=== PATIENT | female | born 1940 | race Hispanic/Latino ===

== ENCOUNTER → 2018-07-08 | Outpatient (CLI) | payer MEDICARE | END | disposition home or self-care (01) | LOC: LAB 11:52 | PROVIDERS: ATTEND Otolaryngology Plastic Surgery within the Head & Neck | DX: H90.3 Sensorineural hearing loss, bilateral (principal) | CPT/HCPCS: 36415; 82565; 84520 ==

== ENCOUNTER 2019-10-20 10:01 | Emergency (ER) | payer MEDICARE ==
[2019-10-20 11:11] LABS: BASOPHILS % (AUTO) 0.4 % (0.0-5.0); EOSINOPHILS % (AUTO) 2.4 % (0.0-8.0); LYMPHOCYTES % (AUTO) 18.7 % (21.0-51.0); MEAN CORPUSCULAR HEMOGLOBIN 32.5 pg (27.0-33.0); MEAN CORPUSCULAR VOLUME 98.7 fL (79-99); NEUTROPHILS % (AUTO) 72.1 % (40.0-77.0); PLATELET COUNT (AUTO) 150 K/uL (130-400); RED BLOOD CELL COUNT(AUTO) 3.75 MIL/uL (4.00-5.50)
[2019-10-20 11:17] LABS: POTASSIUM 4.5 mmol/L (3.5-5.1)
[2019-10-20 11:21] LABS: ALBUMIN 3.9 g/dL (3.5-5.0); TOTAL PROTEIN, SERUM 7.2 g/dL (6.0-8.3)
[2019-10-20 11:39] LABS: APPEARANCE,URINE Clear (CLEAR); BILIRUBIN,URINE Negative (NEGATIVE); COLOR,URINE Yellow (YELLOW); GLUCOSE, URINE (UA) Negative (NEGATIVE); KETONES,URINE Negative (NEGATIVE); LEUKOCYTE ESTERASE ,URINE Negative (NEGATIVE); NITRATE,URINE Negative (NEGATIVE); OCCULT BLOOD,URINE Negative (NEGATIVE); PH,URINE 7.5 (5.0-8.0); PROTEIN,URINE Negative (NEGATIVE)
[2019-10-20] MEDS ORDERED: SODIUM CHLORIDE 0.9% 1000ML 1,000 ML IV ONE (12:50)
== END 2019-10-20 14:06 | disposition home or self-care (01) ==
LOC: EDH 10:01
DX: K44.9 Diaphragmatic hernia without obstruction or gangrene (principal); E78.00 Pure hypercholesterolemia, unspecified; I10 Essential (primary) hypertension; Z90.49 Acquired absence of other specified parts of digestive tract; Z88.6 Allergy status to analgesic agent
CPT/HCPCS: 36415; 74176; 80053; 81003; 82150; 83690; 85025; 93005; J7030

== ENCOUNTER 2019-10-25 12:40 | Emergency (ER) | payer MEDICARE ==
[2019-10-25] MEDS ORDERED: ONDANSETRON HCL 4 MG/2 ML VIAL ONE (13:02)
[2019-10-25] MEDS ORDERED: MORPHINE SULFATE 4 MG/1ML SYG ONE (13:02)
[2019-10-25 13:08] LABS: BASOPHILS % (AUTO) 0.5 % (0.0-5.0); EOSINOPHILS % (AUTO) 2.4 % (0.0-8.0); HEMATOCRIT 34.7 % (36-48); LYMPHOCYTES % (AUTO) 23.6 % (21.0-51.0); MEAN CORPUSCULAR HGB CONC 33.4 g/dL (32.0-36.0); MEAN CORPUSCULAR VOLUME 98.6 fL (79-99); MONOCYTES % (AUTO) 6.3 % (3.0-13.0); NEUTROPHILS % (AUTO) 66.9 % (40.0-77.0); PLATELET COUNT (AUTO) 180 K/uL (130-400); RED BLOOD CELL COUNT(AUTO) 3.52 MIL/uL (4.00-5.50); RED CELL DISTRIBUTION WIDTH 12.3 % (11.0-15.5); WHITE BLOOD COUNT (AUTO) 6.2 K/uL (4.8-10.8)
[2019-10-25 13:24] LABS: CREATININE 1.1 mg/dL (0.5-1.5)
[2019-10-25 13:28] LABS: ALBUMIN 3.9 g/dL (3.5-5.0); BILIRUBIN,TOTAL 0.7 mg/dL (0.2-1.0); TOTAL PROTEIN, SERUM 7.3 g/dL (6.0-8.3)
[2019-10-25 13:41] LABS: INR 0.95 (0.85-1.15); PARTIAL THROMBOPLASTIN TIME 22.6 SEC (26.3-35.5); PROTHROMBIN TIME 10.3 SEC (9.6-11.6)
[2019-10-25] MEDS ORDERED: MAG HYDROX/AL HYDROX/SIMETH ES 30 ML SUSP UDCUP ONE (16:02)
[2019-10-25] MEDS ORDERED: LIDOCAINE HCL 2% VISCOUS 15 ML UDCUP ONE (16:02)
[2019-10-25] MEDS ORDERED: DICYCLOMINE HCL 10 MG/ML 2ML AMP IM ONE (16:05)
[2019-10-25] MEDS ORDERED: SODIUM CHLORIDE 0.9% 500ML 500 ML IV ONE (16:40)
== END 2019-10-25 18:02 | disposition home or self-care (01) ==
LOC: EDH 12:40
DX: K44.9 Diaphragmatic hernia without obstruction or gangrene (principal); R10.13 Epigastric pain; E78.00 Pure hypercholesterolemia, unspecified; I10 Essential (primary) hypertension; Z90.49 Acquired absence of other specified parts of digestive tract; Z88.6 Allergy status to analgesic agent
CPT/HCPCS: 36415; 71045; 74176; 80053; 82550; 83690; 84484; 85025; 85610; 85730; 93005; 96372; 96374; 96375; 99285; J0500; J2270; J2405; J7040; 74240

== ENCOUNTER → 2019-10-25 | Outpatient (CLI) | payer MEDICARE ==
[~2019-10-25] MED LIST: LINA145C PO; LISI10TA7 PO; PANT40TA25 PO; SUCR1TAB2 PO
== END | disposition home or self-care (01) ==
LOC: RAH 10:09
PROVIDERS: ATTEND Internal Medicine Gastroenterology
DX: K44.9 Diaphragmatic hernia without obstruction or gangrene (principal); K21.9 Gastro-esophageal reflux disease without esophagitis
CPT/HCPCS: 74240

== ENCOUNTER 2019-10-27 23:57 | Inpatient (IN) | payer MEDICARE ==
[~2019-10-27] VITALS: Ht 162.6 cm; Wt 78.0 kg
[2019-10-28] VITALS (35 sets, daily range): BP systolic 52–164; BP diastolic 26–90
[2019-10-28 00:14] LABS: BASOPHILS % (AUTO) 0.7 % (0.0-5.0); EOSINOPHILS % (AUTO) 0.2 % (0.0-8.0); HEMATOCRIT 42.7 % (36-48); LYMPHOCYTES % (AUTO) 4.7 % (21.0-51.0); MEAN CORPUSCULAR HEMOGLOBIN 32.9 pg (27.0-33.0); MEAN CORPUSCULAR HGB CONC 33.5 g/dL (32.0-36.0); MEAN CORPUSCULAR VOLUME 98.4 fL (79-99); MONOCYTES % (AUTO) 7.3 % (3.0-13.0); NEUTROPHILS % (AUTO) 86.5 % (40.0-77.0); PLATELET COUNT (AUTO) 206 K/uL (130-400); RED BLOOD CELL COUNT(AUTO) 4.34 MIL/uL (4.00-5.50); WHITE BLOOD COUNT (AUTO) 8.8 K/uL (4.8-10.8)
[2019-10-28] MEDS ORDERED: SODIUM CHLORIDE 0.9% 500ML 500 ML IV ONE ×2 (00:16→01:10)
[2019-10-28 00:30] LABS: PROTHROMBIN TIME 10.8 SEC (9.6-11.6)
[2019-10-28 00:38] LABS: BILIRUBIN,TOTAL 1.9 mg/dL (0.2-1.0); CREATININE 2.5 mg/dL (0.5-1.5); POTASSIUM 3.9 mmol/L (3.5-5.1); TOTAL PROTEIN, SERUM 7.8 g/dL (6.0-8.3)
[2019-10-28] MEDS ORDERED: ONDANSETRON HCL 4 MG/2 ML VIAL ONE (01:10)
[2019-10-28] MEDS ORDERED: SODIUM CHLORIDE 0.9% 1000ML 1,000 ML IV SCH (02:11)
[2019-10-28] MEDS ORDERED: MORPHINE SULFATE 2 MG/ML 1ML SYG IV PRN (02:15)
[2019-10-28] MEDS ORDERED: ACETAMINOPHEN 325 MG TAB PO PRN ×2 (02:15)
[2019-10-28] MEDS ORDERED: LACTULOSE 20 GM/30 ML UDCUP PO PRN (02:15)
[2019-10-28] MEDS ORDERED: HYDRALAZINE HCL 20 MG/ML VIAL IV PRN (02:15)
[2019-10-28] MEDS ORDERED: ONDANSETRON HCL 4 MG/2 ML VIAL IV PRN (02:15)
[2019-10-28] MEDS ORDERED: NITROGLYCERIN 0.4 MG SL TAB SL PRN (03:15)
[2019-10-28 04:05] LABS: CHOLESTEROL 201 mg/dL (<200); HDL CHOLESTEROL 128 mg/dL (35-85); LDL DIRECT 102 mg/dL (0-99); TRIGLYCERIDES 116 mg/dL (30-200)
--- NOTE | 2019-10-28 04:30 | NUR ---
ADMISSION PT TRANSFERRED FROM ER VIA STRETCHER INTO ROOM 419. PT AWAKE, ALERT AND VERBALLY RESPONSIVE. NO C/O PAIN OR DISCOMFORT AT THIS TIME. PT AND FAMILY MEMBER AT BEDSIDE ORIENTED TO ROOM, CALL MELENDREZ WITHIN REACH, BED IN LOWEST POSITION. Addendum: 10/28/19 at 0432 by SHAAN PERALTA RN Amended: Links added.
--- NOTE | 2019-10-28 04:38 | NUR ---
UPON ASSESSING VITALS ON THE FLOOR BP 83/42 O2 SAT 86% ON OXYGEN VIA NC AT 2L/MIN. PT NOW C/O ABD PAIN 05/20, ASSOCIATE PROFESSOR OF EDUCATION ANGELINE MADE AWARE OF PT BP AND PAIN LEVEL. NEW ORDERS GIVEN AND CARRIED OUT.
[2019-10-28] MEDS ORDERED: LINA145C PO (04:40)
[2019-10-28] MEDS ORDERED: PANT40TA25 PO (04:40)
[2019-10-28] MEDS ORDERED: SUCR1TAB2 PO (04:40)
[2019-10-28] MEDS ORDERED: LISI10TA7 PO (04:40)
[2019-10-28] MEDS ORDERED: DILTIAZEM HCL 5 MG/ML 5 ML VIAL IVP SCH (05:15)
--- NOTE | 2019-10-28 05:15 | NUR ---
PROFESSOR OF OCEANOGRAPHY MADE THIS NURSE AWARE THAT PT CONVERTED TO AFIB HR 150-170'S, B/P 68/36, O2 SAT 81% ON 2L/MIN. JOSELYN MARCUS IN PT ROOM ASSESSING PT. NEW ORDERS GIVEN AND CARRIED OUT.
--- NOTE | 2019-10-28 05:25 | NUR ---
SPOKE TO MD SANFORD FOR CRITICAL CARE, STATED HE IS NOT DUMPER TONIGHT. PAGED ANSWERING SERVICE FOR DR. FELIZ TO [phone]. AWAITING CALL BACK.
--- NOTE | 2019-10-28 05:37 | NUR ---
PT CONVERTED BACK TO NSR HR IN THE 90'S, JOSELYN MARCUS MADE AWARE.
--- NOTE | 2019-10-28 05:39 | NUR ---
SPOKE TO DR. EDGAR IN REGARDS TO NEW CONSULT FOR CT ABD/PELVIS RESULTS OF SBO. STATED WILL SEE PT TODAY WHEN HE ROUNDS.
--- NOTE | 2019-10-28 05:40 | NUR ---
ANSWERING SERVICE PAGED ONCE AGAIN FOR DR. FELIZ. AWAITING CALL BACK.
[2019-10-28] MEDS ORDERED: IPRATROPIUM/ALBUTEROL SULFATE 3 ML SOLUTION IH SCH (06:00)
[2019-10-28 06:07] LABS: BASOPHILS % (AUTO) 0.8 % (0.0-5.0); EOSINOPHILS % (AUTO) 3.5 % (0.0-8.0); HEMATOCRIT 40.5 % (36-48); LYMPHOCYTES % (AUTO) 9.3 % (21.0-51.0); MEAN CORPUSCULAR HEMOGLOBIN 32.8 pg (27.0-33.0); MEAN CORPUSCULAR HGB CONC 32.3 g/dL (32.0-36.0); MEAN CORPUSCULAR VOLUME 101.5 fL (79-99); MONOCYTES % (AUTO) 3.5 % (3.0-13.0); NEUTROPHILS % (AUTO) 82.1 % (40.0-77.0); PLATELET COUNT (AUTO) 198 K/uL (130-400); RED BLOOD CELL COUNT(AUTO) 3.99 MIL/uL (4.00-5.50); RED CELL DISTRIBUTION WIDTH 12.1 % (11.0-15.5); WHITE BLOOD COUNT (AUTO) 6.6 K/uL (4.8-10.8)
[2019-10-28] MEDS ORDERED: NOREPINEPHRINE 4MG/NS 250ML 250 ML IV SCH (06:15)
[2019-10-28] MEDS ORDERED: VANCOMYCIN PROTOCOL PER PHARMACY IV SCH ×2 (06:15→08:30)
[2019-10-28] MEDS ORDERED: ZOSYN 3.375GM+NS 50ML 50 ML IV SCH (06:15)
[2019-10-28 06:26] LABS: CREATININE 2.8 mg/dL (0.5-1.5); POTASSIUM 4.2 mmol/L (3.5-5.1)
[2019-10-28] MEDS: IPRATROPIUM 0.5 MG/2.5 ML INH IH SCH ×2 (06:44→10:25)
--- NOTE | 2019-10-28 07:22 | NUR ---
CARDIOLOGY PAGED AT THIS TIME, AWAITING NOLBERTO BACK.
--- NOTE | 2019-10-28 07:30 | NUR ---
SPOKE TO DR. SANFORD, DUE TO UNABLE TO REACH DR. FELIZ AT THIS TIME, UPDATED MD ON PT STATUS. NEW ORDERS RECEIVED.
--- NOTE | 2019-10-28 07:35 | NUR ---
PT SITTING UP IN BED, BECAME UNRESPONSIVE. RAPID RESPONSE CALLED.
--- NOTE | 2019-10-28 07:40 | NUR ---
ON THE PHONE WITH DR. SANFORD CRITICAL CARE, UPDATING MD ON PT STATUS, PT OBSERVED AGONAL BREATHING. DEBRA BEDOLLA CALLED AT THIS TIME, PT WITH NO PULSE.
[2019-10-28] MEDS ORDERED: LACTATED RINGERS 1000ML IV SCH (07:45)
--- NOTE | 2019-10-28 07:56 | NUR ---
SPOKE TO DR. KIM MADE AWARE OF NEW CONSULTATION FOR PT AND PT CURRENT CONDITION, NO NEW ORDERS GIVEN AT THIS TIME.
--- NOTE | 2019-10-28 08:02 | NUR ---
REPORT GIVEN TO NOMI ICU NURSE. PT BEING TRANSFERRED TO ROOM 207 AT THIS TIME.
[2019-10-28] MEDS ORDERED: MEROPENEM 1 GM VIAL IVP SCH (08:15)
[2019-10-28 08:21] LABS: ABG BASE EXCESS -21.3 mmol/L (-2.0-3.0); ABG HCO3 9.2 mmol/L (21.0-28.0); ABG OXYGEN SATURATION 98.3 % (95.0-99.0); ABG PCO2 38 mmHg (32-45)
[2019-10-28] MEDS ORDERED: SODIUM BICARB 50MEQ 50ML VIAL ONE (08:28)
[2019-10-28] MEDS ORDERED: CALCIUM CHLORIDE 100 MG/ML 10 ML SYG IVP SCH (08:30)
[2019-10-28] MEDS ORDERED: LACTATED RINGERS 1000ML 1,000 ML IV SCH (08:30)
[2019-10-28] MEDS ORDERED: SODIUM BICARB 8.4% 50ML SYRING 150 MEQ in DEXTROSE 5%-WATER 1,000 ML IV SCH (08:30)
--- NOTE | 2019-10-28 08:30 | NUR ---
PATIENT RECEIVED INTUBATED AND HYPOTENSIVE PATIENT CURRENTLY UNRESPONSIVE, INTUBATED AND BEING BAGGED BY RT. DR SANFORD AT BEDSIDE TO EXAMINE PATIENT. PREPARING FOR EMERGENCY PLACEMENT OF FEMORAL CENTRAL LINE.
[2019-10-28] MEDS ORDERED: FENTANYL CITRATE PF 50 MCG/1 ML 5ML AMP IV ONE (08:36)
[2019-10-28] MEDS ORDERED: MIDAZOLAM HCL 1 MG/ML 2ML VIAL ONE (08:36)
[2019-10-28] MEDS ORDERED: NOREPINEPHRINE 4MG/NS 250ML 250 ML IV PRN (08:45)
[2019-10-28] MEDS ORDERED: MAGNESIUM 2GM PREMIX 50ML 50 ML IV ONE (08:49)
[2019-10-28] MEDS ORDERED: FAMOTIDINE/PF 20 MG/2 ML VIAL IV SCH (09:00)
[2019-10-28] MEDS ORDERED: ASPIRIN 81MG TAB.CHEW PO SCH (09:00)
[2019-10-28] MEDS ORDERED: FENTANYL CITRATE PF 50 MCG/1 ML 2ML VIAL IVP SCH (09:00)
[2019-10-28] MEDS ORDERED: AMIODARONE HCL 150 MG in DEXTROSE 5%-WATER 100 ML IV SCH (09:00)
[2019-10-28] MEDS ORDERED: MAGNESIUM 2GM PREMIX 50ML 50 ML IV PRN (09:00)
[2019-10-28] MEDS ORDERED: AMIODARONE HCL 900 MG in DEXTROSE 5%-WATER 500 ML IV SCH (09:00)
[2019-10-28] MEDS ORDERED: SODIUM BICARB 50MEQ 50ML VIAL IV SCH (09:00)
[2019-10-28] MEDS ORDERED: METOPROLOL TARTRATE 25 MG TAB PO SCH (09:00)
[2019-10-28] MEDS ORDERED: ENOXAPARIN SODIUM 40 MG/0.4 ML SYRINGE SQ SCH (09:00)
--- NOTE | 2019-10-28 09:00 | NUR ---
DR SANFORD AT BEDSIDE PLACING EMERGENT CENTRAL LINE FOR VASOPRESSORS AND ALL MEDICATIONS PATIENT REMAINS WITH HYPOTENSION ON HIGH DOSE LEVOPHED. PLEASE REFER TO V/S CHARTING
[2019-10-28] MEDS ORDERED: MIDAZOLAM HCL 1 MG/ML 2ML VIAL IVPB SCH (09:15)
[2019-10-28] MEDS ORDERED: VASOPRESSIN 40 UNITS in SODIUM CHLORIDE 0.9% 40 ML IV PRN (09:15)
[2019-10-28 09:34] LABS: ABG BASE EXCESS -14.4 mmol/L (-2.0-3.0); ABG HCO3 14.7 mmol/L (21.0-28.0); ABG OXYGEN SATURATION 90.3 % (95.0-99.0); ABG PCO2 47 mmHg (32-45)
[2019-10-28 09:38] LABS: CREATININE 2.7 mg/dL (0.5-1.5); POTASSIUM 3.8 mmol/L (3.5-5.1)
[2019-10-28 09:47] LABS: TOTAL PROTEIN, SERUM 4.7 g/dL (6.0-8.3)
[2019-10-28 09:56] LABS: INR 1.2 (0.85-1.15); PROTHROMBIN TIME 12.9 SEC (9.6-11.6)
[2019-10-28] MEDS ORDERED: VANCOMYCIN 1GM+NS 250ML 250 ML IV SCH (11:00)
[2019-10-28 11:38] LABS: HEMATOCRIT 32.9 % (36-48); MEAN CORPUSCULAR HEMOGLOBIN 33.3 pg (27.0-33.0); MEAN CORPUSCULAR HGB CONC 32.5 g/dL (32.0-36.0); MEAN CORPUSCULAR VOLUME 102.5 fL (79-99); NUCLEATED RED BLOOD CELLS 3.6 % (0.0-0.19); PLATELET COUNT (AUTO) 112 K/uL (130-400); RED BLOOD CELL COUNT(AUTO) 3.21 MIL/uL (4.00-5.50); RED CELL DISTRIBUTION WIDTH 11.9 % (11.0-15.5)
[2019-10-28 11:59] LABS: WHITE BLOOD COUNT (AUTO) 0.6 K/uL (4.8-10.8)
[2019-10-28] MEDS ORDERED: ETOMIDATE 2 MG/ML 10 ML VIAL IVP ONE (12:00)
[2019-10-28] MEDS ORDERED: ROCURONIUM BROMIDE 10MG/1ML 5ML VL IV ONE (12:00)
[2019-10-28] MEDS ORDERED: EPINEPHRINE 0.1 MG/ML 10 ML SYG IVP ONE (12:00)
[2019-10-28] MEDS ORDERED: FENTANYL CITRATE PF 0.05 MG/ML 1,000 MCG in SODIUM CHLORIDE 0.9% 100 ML IVPB PRN (12:00)
[2019-10-28] MEDS ORDERED: CALCIUM CHLORIDE 100 MG/ML 10 ML SYG IVP ONE (12:00)
--- NOTE | 2019-10-28 12:26 | NUR ---
PATIENT CRITICAL EKG ALARM PATIENT CONVERTED FROM SINUS RHYTHM 70'S TO IDIOVENTRICULAR 20'S @ 1226. LEVOPHED AND VASOPRESSIN DRIPS STILL RUNNING, VENTILATOR ACTIVE. PATIENT APPEARS DUSKY AND IS UNRESPONSIVE TO STIMULATION. PATIENT IS PULSELESS, DNR IN EFFECT. DAUGHTER DEDE ZAPATA NOW AT BEDSIDE, INFORMED OF SITUATION AND REMINDED THAT PATIENT HAS NO PULSE. FAMILY CALLED
--- NOTE | 2019-10-28 12:30 | NUR ---
PRONOUNCEMENT OF DR FELIZ AT BEDSIDE TO PRONOUNCE . PATIENT IS ASYSTOLE, PUPILS FIXED AND DILATED, NO HEART SOUNDS. VENTILATOR TURNED OFF. REFER TO DOCUMENTATION OF PAPERWORK.
[2019-10-28 13:28] LABS: BAND NEUTROPHILS % (MANUAL) 1 % (0-2); EOSINOPHILS % (MANUAL) 2 % (1-6); LYMPHOCYTES % (MANUAL) 45 % (22-44); MAN.DIFF COMMENT-IMPRESSION MANUAL DIFFERENTIAL; MONOCYTES % (MANUAL) 39 % (2-9); PLATELET MORPHOLOGY COMMENT SLIGHTLY DECREASED; REACTIVE LYMPHOCYTES 7 % (0-0); SEGMENTED NEUTROPHILS % 6 % (40-70)
--- NOTE | 2019-10-28 14:20 | NUR ---
BLOW MOLD MACHINE OPERATOR NOTIFIED OF <24HR OF ADMISSION DR ZAIN PATTERSON NOTIFIED BY WORKFORCE MANAGER, Zahida ARTHUR RN OF . PATIENT HISTORY, CURRENT SITUATION AND CIRCUMSTANCES SURROUNDING . NO AUTOPSY ORDERED. ADMITTING PHYSICIAN DR Isaiah CHAVEZ WILL SIGN CERTIFICATE OF .
== END 2019-10-28 12:30 | disposition expired | DRG 871 ==
LOC: EDH 23:57 → OBSVTOIN 10-28 02:11 → EDHIP 10-28 02:11 → 4CH 10-28 04:30 → 2BH 10-28 08:21
PROVIDERS: ADMIT Hospitalist; ATTEND Hospitalist
PROC: 0BH17EZ Insertion of Endotracheal Airway into Trachea, Via Natural or Artificial Opening (ICD-10-PCS; principal; 2019-10-28)
PROC: 5A1935Z Respiratory Ventilation, Less than 24 Consecutive Hours (ICD-10-PCS; 2019-10-28)
DX: A41.9 Sepsis, unspecified organism (principal); J96.01 Acute respiratory failure with hypoxia; J69.0 Pneumonitis due to inhalation of food and vomit; K72.00 Acute and subacute hepatic failure without coma; R65.21 Severe sepsis with septic shock; N17.9 Acute kidney failure, unspecified; K56.609 Unspecified intestinal obstruction, unspecified as to partial versus complete obstruction; K55.9 Vascular disorder of intestine, unspecified; E87.1 Hypo-osmolality and hyponatremia; E87.2 Acidosis; R07.89 Other chest pain; I48.91 Unspecified atrial fibrillation; K44.9 Diaphragmatic hernia without obstruction or gangrene; I10 Essential (primary) hypertension; E78.5 Hyperlipidemia, unspecified; Z66 Do not resuscitate
CPT/HCPCS: 31500; 36415; 36600; 71045; 74176; 74240; 80048; 80053; 80061; 82435; 82550; 82803; 82947; 82948; 83605; 83690; 83735; 83880; 84132; 84145; 84295; 84484; 85018; 85025; 85378; 85610; 85730; 86850; 86900; 86901; 87040; 92950; 93005; 93306; 93356; 94002; 94640; C1751; G0378; J0171; J0282; J2250; J2405; J2543; J3010; J3475; J3490; J7040; J7060; J7070; J7120